=== PATIENT | male | born 1960 | race Caucasian/White ===

== ENCOUNTER 2022-03-14 22:02 | Inpatient (IN) | payer OTHER ==
[~2022-03-14] VITALS: Ht 170.2 cm; Wt 72.7 kg
[2022-03-15] MEDS ORDERED: ibuprofen tablet 400 MG TABLET PO ONE (01:35)
--- NOTE | 2022-03-15 02:34 | NUR ---
AT BEDSIDE WITH ULTRASOUND
[2022-03-15] MEDS ORDERED: vancomycin/NS 1 GM ADD-VANTAGE 250 ML IV ONE (02:50)
[2022-03-15] MEDS ORDERED: ampicill/sulbac 1.5gm/NS 100ml 100 ML IV SCH (02:50)
--- NOTE | 2022-03-15 03:10 | NUR ---
BLOOD SENT TO LAB
[2022-03-15 03:22] LABS: BASOPHILS # (AUTO) 0.1 X10'3 (0-0.2); BASOPHILS % (AUTO) 0.7 % (0-1); EOSINOPHILS # (AUTO) 0.2 X10'3 (0-0.9); EOSINOPHILS % (AUTO) 1.2 % (0-6); HEMATOCRIT 40.7 % (42.0-52.0); HEMOGLOBIN 13.8 g/dl (14.0-17.9); LYMPHOCYTES # (AUTO) 2.5 X10'3 (1.1-4.8); LYMPHOCYTES % (AUTO) 19.1 % (21-51); MEAN CORPUSCULAR HEMOGLOBIN 33.1 PG (27.0-31.0); MEAN CORPUSCULAR VOLUME 97.2 FL (78-98); MEAN PLATELET VOLUME 6.5 FL (7.4-10.4); MONOCYTES % (AUTO) 7.6 % (2-12); NEUTROPHILS # (AUTO) 9.3 X10'3 (1.8-7.7); NEUTROPHILS % (AUTO) 71.4 % (42-75); PLATELET COUNT 292 X10'3 (140-440); RED BLOOD COUNT 4.18 X10'6 (4.70-6.10); RED CELL DISTRIBUTION WIDTH 13.1 % (11.5-14.5)
[2022-03-15 03:37] LABS: ANION GAP 8 (8-16); BLOOD UREA NITROGEN 18 MG/DL (7-18); BUN/CREATININE RATIO 20.9 (5.4-32.0); CHLORIDE 102 MMOL/L (99-107); CREATININE 0.86 MG/DL (0.60-1.10); GLUCOSE 105 MG/DL (70-104); SODIUM 139 MMOL/L (135-145); TOTAL CARBON DIOXIDE 28.6 MMOL/L (24-32); eGFR > 90 ML/MIN
[2022-03-15 03:38] LABS: ALANINE AMINOTRANSFERASE 30 U/L (12-78); ALBUMIN 3.9 G/DL (3.4-5.0); ALBUMIN/GLOBULIN RATIO 1.1 (1.1-1.5); ALKALINE PHOSPHATASE 50 IU/L (46-116); ASPARTATE AMINO TRANSFERASE 25 U/L (10-37); BILIRUBIN,TOTAL 0.4 MG/DL (0.1-1.0); TOTAL PROTEIN 7.3 G/DL (6.4-8.2)
[2022-03-15] MEDS ORDERED: magnesium Cl slow-release 64mg tablet PO PRN (08:20)
[2022-03-15] MEDS ORDERED: normal saline 1000ml 1,000 ML IV SCH (08:20)
[2022-03-15] MEDS ORDERED: magnesium hydroxide 30ml (MOM) UD suspension PO PRN (08:20)
[2022-03-15] MEDS ORDERED: potassium CL 10mEq/100ml bag 100 ML IV PRN (08:20)
[2022-03-15] MEDS ORDERED: cefepime 2g/NS 100ml ADVANTAGE 100 ML IV SCH (08:20)
[2022-03-15] MEDS ORDERED: ondansetron/PF 4mg/2ml inj IV PRN (08:20)
[2022-03-15] MEDS ORDERED: magnesium 4gm in 100ml NS 100 ML IV PRN (08:20)
[2022-03-15] MEDS ORDERED: mag hydrox/Alum hydrox/simeth 30ml oral suspension PO PRN (08:20)
[2022-03-15] MEDS ORDERED: POTASSIUM BICARB 20meq eff tab 20 MEQ TABLET.EFF PO PRN ×2 (08:20)
[2022-03-15] MEDS ORDERED: magnesium 2GM in 50ml NS 50 ML IV PRN (08:20)
[2022-03-15] MEDS ORDERED: acetaminophen 325mg tablet PO PRN (08:20)
[2022-03-15 08:43] LABS: MAGNESIUM 2.1 MG/DL (1.5-2.4)
--- NOTE | 2022-03-15 09:22 | NUR ---
medication being sent from lab, [email or web address]
[2022-03-15] MEDS ORDERED: BUPIVAcaine/PF 2.5 mg/ml (0.25%) 30ml vial ONE (11:55)
[2022-03-15] MEDS ORDERED: fentaNYL/PF 50MCG/1 ML 2ML syringe ONE (11:58)
[2022-03-15] MEDS ORDERED: midazolam 1 mg/ML 2ml injection ONE (11:59)
[2022-03-15] MEDS ORDERED: BUPIVAcaine/PF 7.5mg/ml (0.75%) 10ml vial ONE ×2 (12:11→12:30)
[2022-03-15] MEDS ORDERED: LIDOcaine 2% (20mg/ml) 5ml vial ONE (12:30)
[2022-03-15] MEDS ORDERED: propofol inj 20 ML IV ONE (12:30)
[2022-03-15 12:37] VITALS: BP 117/83
--- NOTE | 2022-03-15 12:37 | NUR ---
Received from OR via [facility] IN STABLE CONDITION , accompanied by Anesthesiologist and WEATHERIZATION INSTALLER report given by WEATHERIZATION INSTALLER AND Anesthesiolgist. Addendum: 03/15/22 at 1258 by Marycarmen Skelton RN Amended: Links added.
[2022-03-15 12:40] VITALS: BP 117/83
[2022-03-15 12:50] VITALS: BP 118/75
[2022-03-15 13:00] VITALS: BP 121/72
[2022-03-15 13:10] VITALS: BP 119/71
[2022-03-15 13:20] VITALS: BP 115/70
--- NOTE | 2022-03-15 13:27 | NUR ---
PATIENT DISCHARGED FROM PACU IN STABLE CONDITION AFTER WRITTEN AND VERBAL DISCHARGE INSTRUCTIONS AND PRESCRIPTIONS GIVEN TO PATIENT. PATIENT GAVE VERBAL UNDERSTANDING OF INSTRUCTIONS GIVEN. PATIENT LEFT FACILITY VIA WHEELCHAIR WITH RN. Addendum: 03/15/22 at 1355 by Marycarmen Skelton RN Amended: Links added.
[2022-03-15] MEDS ORDERED: vancomycin/NS 1 GM ADD-VANTAGE 250 ML IV SCH (16:00)
[2022-03-15] MEDS ORDERED: K and/or MAG REPLACEMENT MC SCH (20:00)
[2022-03-15] MEDS ORDERED: docusate sod 100mg capsule PO SCH (20:00)
[2022-03-16] MEDS ORDERED: enoxaparin 40mg/0.4ml syringe SUBCUT SCH (08:00)
[2022-03-16] MEDS ORDERED: VANCOMYCIN LEVEL IV ONE (15:30)
== END 2022-03-15 13:27 | disposition home or self-care (01) | DRG 603 ==
LOC: ER 22:05 → ED HOLD 03-15 08:20
PROVIDERS: ADMIT Family Medicine; ATTEND Family Medicine
PROC: 0X9K0ZZ Drainage of Left Hand, Open Approach (ICD-10-PCS; principal; 2022-03-15 12:00)
DX: L02.512 Cutaneous abscess of left hand (principal); Z20.822 Contact with and (suspected) exposure to COVID-19; Z60.2 Problems related to living alone; X58.XXXA Exposure to other specified factors, initial encounter; S60.352A Superficial foreign body of left thumb, initial encounter; Y93.89 Activity, other specified; Y92.89 Other specified places as the place of occurrence of the external cause; Y99.8 Other external cause status
CPT/HCPCS: 96374; 96375; 99285; Z7506; 36415; 73140; 80053; 83605; 83735; 84145; 85025; 87040; 87070; 87075; 87077; 87186; 87811; 93005; A4618; A6222; A6449; A7000; G0378; J0295; J0692; J2250; J2704; J3010; J3370; J3490; J7030; J7120